=== PATIENT | female | born 2000 | race Caucasian/White ===

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

== ENCOUNTER → 2022-12-25 | Outpatient (CLI) | payer OTHER ==
[~2022-12-25] MED LIST changes: -FLUO20CA25; +FLUO20CA48; -OMEP20CA12; +OMEP20CA18; -OMEP40CA36 PO; +OMEP40CA6 PO; -TRAM50TA2 PO; +TRM50T PO
--- NOTE | 2022-12-25 11:26 | Diagnostic Imaging Report ---
PROCEDURE: US Non-ob pelvis comp/trans. INDICATION: Primary Dx N92.6 IRREGULAR MENSTRUATION TECHNIQUE: Multiple real time moon scale sonographic images were obtained of the pelvis transabdominally and transvaginally. CORRELATION STUDY: None FINDINGS: UTERUS: 4.9 x 2.9 cm. The uterus appearing unremarkable. ENDOMETRIUM: 0.5 cm. The endometrium is of normal thickness. Small amount of fluid lower endometrial canal near the cervix. RIGHT OVARY: 2.1 x 1.3 x 1.4 cm. LEFT OVARY: 4.8 x 1.8 x 5 cm. Ovaries contain small cysts and/or follicles. Largest left sided at 1.8 x 1.9 x 1.2 cm. Bilateral ovarian blood flow is present. No significant free pelvic fluid. IMPRESSION: 1. Unremarkable appearing pelvic ultrasound examination. Dictated by: Dictated on workstation # [id number]
== END ==
LOC: RAD 07:51
PROVIDERS: ATTEND Nurse Practitioner Women's Health
DX: N92.6 Irregular menstruation, unspecified (principal)
CPT/HCPCS: 76830; 76856

== ENCOUNTER 2022-12-31 05:27 | Outpatient (CLI) | payer OTHER ==
[~2022-12-31] VITALS: Ht 165.1 cm; Wt 159.1 kg
[2022-12-31] MEDS ORDERED: DESV100T PO (10:40)
[2022-12-31] MEDS ORDERED: RT-ALBUINH INH (10:40)
[2022-12-31] MEDS ORDERED: BUSP10TA95 PO (10:40)
== END 2022-12-31 11:08 | disposition home or self-care (01) ==
LOC: PREOP 05:27
PROVIDERS: ATTEND Obstetrics & Gynecology
DX: Z01.818 Encounter for other preprocedural examination (principal)

== ENCOUNTER 2023-01-07 07:26 | Day surgery (SDC) | payer OTHER ==
[2023-01-07] VITALS (12 sets, daily range): BP systolic 86–145; BP diastolic 54–99
[~2023-01-07] VITALS: Ht 165.1 cm; Wt 159.1 kg
[~2023-01-07 07:26] MED LIST changes: +BUSP10TA95 PO; +DESV100T PO; +RT-ALBUINH INH
[2023-01-07] MEDS ORDERED: BUPIVACAINE 0.25% 30 ML VIAL ONE (07:36)
[2023-01-07] MEDS ORDERED: BUPIVACAINE 0.25% 30 ML VIAL INJ ONE (07:40)
[2023-01-07 08:18] LABS: BASOPHILS % (AUTO) 0 % (0-10); EOSINOPHILS # (AUTO) 0.1 10^3/uL (0.0-0.3); EOSINOPHILS % (AUTO) 1 % (0-10); HEMATOCRIT 41 % (35-52); HEMOGLOBIN 13.7 g/dL (11.5-16.0); LYMPHOCYTES # (AUTO) 2.3 10^3/uL (1.0-4.0); LYMPHOCYTES % (AUTO) 33 % (12-44); MEAN CORPUSCULAR HEMOGLOBIN 31 pg (25-34); MEAN CORPUSCULAR HGB CONC 33 g/dL (32-36); MEAN CORPUSCULAR VOLUME 92 fL (80-99); MEAN PLATELET VOLUME 9.9 fL (9.0-12.2); MONOCYTES # (AUTO) 0.4 10^3/uL (0.0-1.0); MONOCYTES % (AUTO) 6 % (0-12); NEUTROPHILS # (AUTO) 4.1 10^3/uL (1.8-7.8); NEUTROPHILS % (AUTO) 60 % (42-75); PLATELET COUNT 323 10^3/uL (130-400); WHITE BLOOD COUNT 6.9 10^3/uL (4.3-11.0)
[2023-01-07] MEDS ORDERED: LACTATED RINGERS 1,000 ML 1,000 ML IV PRN (08:30)
[2023-01-07] MEDS ORDERED: dexAMETHasone INJ 10 MG/ML 1 ML VIAL ONE (10:15)
[2023-01-07] MEDS ORDERED: LIDOCAINE PF 2% 5 ML VIAL ONE (10:15)
[2023-01-07] MEDS ORDERED: fentaNYL INJECTION 100 MCG/2 ML VIAL ONE (10:15)
[2023-01-07] MEDS ORDERED: SEVOFLURANE (ULTANE) 15 ML INHAL SOLN ONE ×2 (10:15→11:12)
[2023-01-07] MEDS ORDERED: ONDANSETRON INJECTION 4 MG/2 ML (SDV) ONE (10:15)
[2023-01-07] MEDS ORDERED: proPOfol INJECTION 200 MG/20 ML VIAL IV ONE (10:15)
[2023-01-07] MEDS ORDERED: MIDAZOLAM INJ 2 MG/2 ML VIAL ONE (10:16)
[2023-01-07] MEDS ORDERED: LIDOCAINE 2% w/EPI 1:100,000 20 ML VIAL ONE (10:39)
[2023-01-07] MEDS ORDERED: LIDOCAINE 2% w/EPI 1:100,000 20 ML VIAL INJ ONE (11:04)
--- NOTE | 2023-01-07 11:18 | Anesthesia-General Post-Op ---
General Patient Condition Mental Status/LOC: Same as Preop Cardiovascular: Satisfactory Nausea/Vomiting: Absent Respiratory: Satisfactory Pain: Controlled Complications: Absent Post Op Complications Complications None Follow Up Care/Instructions Patient Instructions None needed. Anesthesia/Patient Condition Patient Condition Patient is doing well, no complaints, stable vital signs, no apparent adverse anesthesia problems. No complications reported per nursing. SHERRIE CAN CRNA Jan 07, 2023 11:17
--- NOTE | 2023-01-07 11:28 | Progress Note-Pre Operative ---
Pre-Operative Progress Note Date of Available H&P: Jan 07, 2023 Date H&P Reviewed: Jan 07, 2023 Time H&P Reviewed: 09:35 History & Physical: H&P Reviewed, Patient Examed, No changes noted Pre-Operative Diagnosis: Left skenes duct cyst. AUB, BMI >45 NAIMA FALLON DO Jan 07, 2023 11:28
[2023-01-07] MEDS ORDERED: ACHD5005 PO (11:29)
--- NOTE | 2023-01-07 11:29 | Discharge Inst-Women's Service ---
Discharge Inst-Women's Serv Depart Medication/Instructions New, Converted or Re-Newed RX: Transmitted to Pharmacy Problems Reviewed?: Yes Consults/Follow Up Additional Follow Up: Yes Orders/Referrals Dr. Fallon in 7-10 days and in 8 weeks Activity Activity: Activity as Tolerated Driving Instructions: No Driving for 1 Week NO SMOKING: NO SMOKING Nothing Inside Vagina: No Douching, No [place], No Tampons Diet Discharge Diet: No Restrictions Symptoms to Report to : Bleeding Excessive, Pain Increased, Fever Over 101 Degrees F, Vaginal Bleeding Increase, Questions/Concerns For Any Problems or Questions: Contact Your Physician NAIMA FALLON DO Jan 07, 2023 11:29
[2023-01-07] MEDS ORDERED: fentaNYL INJECTION 100 MCG/2 ML VIAL IVP ONE (11:30)
[2023-01-07] MEDS ORDERED: MEPERIDINE INJ 50 MG/ML VIAL IVP ONE (11:30)
[2023-01-07] MEDS ORDERED: HYDROmorphone INJECTION 2 MG/ML VIAL IV ONE (11:30)
[2023-01-07] MEDS ORDERED: morphine INJ 10 MG/ML 1ML (SYR OR VIAL) IVP ONE (11:30)
[2023-01-07] MEDS ORDERED: HYDROcodone/ACETAMINOPHEN 5 MG/325 MG TABLET PO PRN (11:45)
[2023-01-07] MEDS ORDERED: ONDANSETRON INJECTION 4 MG/2 ML (SDV) IVP PRN (11:45)
[2023-01-07] MEDS ORDERED: KETOROLAC INJ 30 MG/ML VIAL IVP ONE (11:45)
[2023-01-07] MEDS ORDERED: D5 LR 1,000 ML IV SOLN 1,000 ML IV SCH (11:45)
[2023-01-07] MEDS: ONDANSETRON INJECTION 4 MG/2 ML (SDV) IVP PRN ×3 (12:27→12:29)
--- NOTE | 2023-01-07 23:03 | OPERATIVE REPORT ---
DATE OF SERVICE: 01/07/2023 PREOPERATIVE DIAGNOSES: 1. A 22-year-old female with left Frystown's gland enlargement. 2. Abnormal uterine bleeding -- menorrhagia. POSTOPERATIVE DIAGNOSES: 1. A 22-year-old female with left Fryst[place]'s gland enlargement. 2. Abnormal uterine bleeding -- menorrhagia. PROCEDURE: Excision of left Fryst[place]'s gland and placement of Mirena IUD. SURGEON: Nick Cardenas DO ANESTHESIA: LMA general. ESTIMATED BLOOD LOSS: Minimal. URINE OUTPUT: 100 mL clear drainage at the end of the procedure. FLUIDS: 800 mL lactated Ringer's solution. FINDINGS: An approximately 8 mm x 1 cm in diameter nodular structure just left of the clitoris and the left labia majora; otherwise grossly normal-appearing external female genitalia. SPECIMEN SENT: Left clitoral nodule. INDICATIONS FOR PROCEDURE: This 22-year-old female is a patient, who sought care in my office as a referral for this area that is just left to the clitoris that becomes enlarged and painful at times that comes and goes; however, she wishes to have this addressed. Upon evaluation in the office, there was found to be dilated and enlarged Fryst[place]'s gland on the patient's left side. I discussed with the patient removal of this if it continues to be a problem. She has tried more conservative measures in the past. She also wished to have an IUD placement, would prefer to have it place while she was under anesthesia. Risk of that as well as reviewed with the patient. After all of her questions were answered, she was agreeable to proceed. Consent was obtained, the patient was taken to the operating room. OPERATIVE REPORT IN DETAIL: Once in the operating room, anesthesia was administered and found to be adequate, was placed in dorsal lithotomy position, prepped and draped in normal sterile fashion. A timeout was performed. I then injected the cutaneous tissue around the underlying palpable Fryst[place]'s gland with 0.25% Marcaine with epinephrine, approximately 10 mL are used. I then make a linear incision and I am able to elevate the Fryst[place]'s gland duct up to the surface of my incision, was then shelled out of its surrounding tissue and blood supply and removed intact. I cauterized the bleeding planes of dissection and closed the defect deeply using 2-0 Vicryl suture in interrupted fashion and the cutaneous tissue was reapproximated using 3-0 Rapide Vicryl in a running locking fashion, after which there was no active bleeding noted from this incision. I then placed a weighted speculum into the patient's vagina. A right angle retractor was utilized to view the cervix, it was grasped at 12 o'clock position using a long Allis clamp. I placed a Mirena easily into the uterus to a depth of approximately 8 cm deploying the arms at 8 cm and trimming the strings approximately 2 cm from the external cervical os. After which, lap and sponge counts were correct at the end of the procedure. Instrument counts were correct as well. The patient tolerated the procedure well and sent to recovery area in stable condition. Job ID: [id number] DocumentID: [id number] Dictated Date: 01/07/2023 13:44:29 Budget Consultant Date: 01/07/2023 23:01:00 Dictated By: DO LUCRETIA SHANNON
== END 2023-01-07 13:40 | disposition home or self-care (01) ==
LOC: SDC 07:26
PROVIDERS: ATTEND Obstetrics & Gynecology
DX: N36.8 Other specified disorders of urethra (principal); N93.9 Abnormal uterine and vaginal bleeding, unspecified; E66.01 Morbid (severe) obesity due to excess calories; Z68.43 Body mass index [BMI] 50.0-59.9, adult
CPT/HCPCS: 36415; 84703; 85025; 86850; 86900; 86901; 87081